=== PATIENT | female | born 1935 | race Caucasian/White ===

== ENCOUNTER → 2017-08-21 10:23 | Outpatient (CLI) | payer MEDICARE, OTHER, SELFPAY ==
--- NOTE | 2017-08-21 10:28 | DI.RAD.S_ITS ---
PROCEDURE: XR CERVICAL SPINE 2V OR 3V INDICATIONS: pain TECHNIQUE: 3 view(s) of the cervical spine were acquired. COMPARISON: [facility], , CERVICAL SPINE 4 OR 5 VIEWS, 12/28/2015, 11:53. FINDINGS: Bones: No fractures or dislocations to the T1 level. The lateral masses of C1 appear intact on the odontoid view. No suspicious bony lesions. There is grade 1 anterolisthesis of C3 on C4 and grade 2 anterolisthesis of C7 on T1. There is degenerative disc disease, severe at C4-C5, C5-C6 and C6-C7. Bilateral facet arthropathy scattered in cervical spine, severe C3-C4 on the right, and C3-C4 and C4-C5 on the left. Soft tissues: No prevertebral soft tissue swelling. IMPRESSION: 1. Severe degenerative disc and facet disease in cervical spine. 2. Spondylolisthesis at C3-C4 and C7-T1. Dictated by: Beatris Mcgovern M.D. on 08/21/2017 at 11:11 Approved by: Beatris Mcgovern M.D. on 08/21/2017 at 11:15
--- NOTE | 2017-08-21 10:28 | DI.RAD.S_ITS ---
PROCEDURE: XR LUMBAR SPINE MIN 4V INDICATIONS: pain TECHNIQUE: 5 views of the lumbar spine acquired. COMPARISON: None. FINDINGS: Bones: 5 nonrib-bearing vertebrae are present. There is grade 1-2 anterolisthesis of L4 on L5, and grade 1 retrolisthesis of L1 on L2. No vertebral body compression fractures. No suspicious bony lesions. There is degenerative disc disease, severe T11-T12, T12-L1, L1-L2 and L4-L5. Mild to moderate facet arthropathy at L4-L5 and L5-S1. No pars defect. There is osteopenia. Soft tissues: Overlying bowel gas pattern is normal. No suspicious soft tissue calcifications. Aortic calcification consistent with atherosclerosis. Flexion/extension: There is decreased range of motion. IMPRESSION: 1. Multilevel severe degenerative disc disease. 2. Mild to moderate lower lumbar spine facet arthropathy. 3. Spondylolisthesis. 4. Decreased range of motion. 5. Osteopenia. Dictated by: Beatris Mcgovern M.D. on 08/21/2017 at 11:21 Approved by: Beatris Mcgovern M.D. on 08/21/2017 at 11:26
[2017-08-21 10:52] LABS: Add Manual Diff / Slide Review NO; Basophils Percent Auto 1.2 % (0-2); Eosinophils Percent Auto 3.6 % (2-4); Hematocrit 41.7 % (36-46); Hemoglobin 13.8 g/dL (12.0-16.0); Lymphocytes Percent Auto 28.5 % (25-40); Mean Corpuscular HGB Conc 33.1 % (30-36); Mean Corpuscular Hemoglobin 30.8 PG (26-34); Mean Corpuscular Volume 92.9 fL (80-100); Monocytes Percent Auto 9.6 % (3-14); Neutrophils Absolute Auto 3800 /uL (3000-5900); Neutrophils Percent Auto 57.1 % (50-75); Platelet Count 235 X10^3/uL (150-400); Red Blood Cell Count 4.48 X10^6/uL (4.0-5.2); Red Cell Distribution Width 13.2 % (11.6-14.8); White Blood Cell Count 6.6 X10^3/uL (4.5-11.0)
[2017-08-21 11:16] LABS: Alanine Aminotransferase 38 IU/L (9-52); Albumin 4.5 g/dL (3.5-5.0); Albumin Globulin Ratio 1.3 (1.0-2.8); Alkaline Phosphatase 91 U/L (38-126); Aspartate Aminotransferase 37 IU/L (14-36); BUN Creatinine Ratio 26.7 (6-22); Bilirubin Total 0.8 mg/dL (0.2-1.3); Blood Urea Nitrogen 16 mg/dL (7-17); Calcium 9.7 mg/dL (8.4-10.2); Carbon Dioxide 29 mmol/L (22-32); Chloride 101 mmol/L (98-107); Cholesterol 157 mg/dL (140-199); Estimated Glomerular Filt Rate > 60.0 mL/min (>60); Globulin 3.4 g/dL (1.7-4.1); Glucose 112 mg/dL (80-110); HDL Cholesterol 50 mg/dL (40-60); HEMOLYSIS < 15 (0-50); LDL Cholesterol Calculated 86 mg/dL (<100); Potassium 4.4 mmol/L (3.4-5.1); Sodium 141 mmol/L (137-145); Total Protein 7.9 g/dL (6.3-8.2); Triglycerides 104 mg/dL (35-150)
[2017-08-21 11:58] LABS: Thyroid Stimulating Hormone 1.37 uIU/mL (0.47-4.68)
== END ==
PROVIDERS: Visit Provider Family Medicine
DX: M50.30 Other cervical disc degeneration, unspecified cervical region (principal); M47.812 Spondylosis without myelopathy or radiculopathy, cervical region; M43.12 Spondylolisthesis, cervical region; M43.13 Spondylolisthesis, cervicothoracic region
CPT/HCPCS: 36415; 72040; 72110; 80053; 80061; 84443; 85025

== ENCOUNTER → 2017-10-13 10:36 | Outpatient (CLI) | payer MEDICARE, OTHER, SELFPAY ==
--- NOTE | 2017-10-13 10:38 | DI.MRI.S_ITS ---
PROCEDURE: MR CERVICAL SPINE WO CON INDICATIONS: 82 year-old woman with neck pain and cervical radiculopathy. TECHNIQUE: Noncontrast sagittal T1 spin echo and T2 fast spin echo, sagittal STIR, foraminal oblique sagittal T2 fast spin echo, and axial gradient echo or T2 fast spin echo through the cervical spine. COMPARISON: [facility], , XR CERVICAL SPINE 2V OR 3V, 08/21/2017, 10:42. [facility], , CERVICAL SPINE 4 OR 5 VIEWS, 12/28/2015, 11:53. FINDINGS: Image quality: There are motion artifacts. Alignment and Curvature: There is grade 1 anterolisthesis of C2 on C3, C3 on C4 and C7 on T1. Bone Marrow: Degenerative endplate signal changes are present throughout the cervical spine. Spinal Cord: Visualized spinal cord has normal size and signal. No cerebellar tonsillar herniation. Paraspinous Soft Tissues: No paravertebral masses. Prevertebral soft tissues are normal in thickness. C2-C3: Preserved disc height. Mild disc desiccation. There is mild posterior disc bulge. Moderate bilateral facet arthropathy. The central canal is mildly narrowed. Moderate left and mild right foraminal stenosis. C3-C4: Mild loss of disc height and disc desiccation. There is diffuse posterior disc bulge. Mild bilateral facet arthropathy. The central canal is moderately narrowed. Severe right and moderate left foraminal stenosis. C4-C5: Ynakiuzp-en-pemqek loss of disc height and disc desiccation. There is diffuse posterior disc bulge. Mild bilateral facet arthropathy. The central canal is focyfxkb-oi-muqlbpmo narrowed. Severe bilateral foraminal stenosis. C5-C6: Severe loss of disc height and disc desiccation. There is diffuse posterior disc bulge. Mild bilateral facet arthropathy. The central canal is severely narrowed. Severe lateral foraminal stenosis. C6-C7: Severe loss of disc height and disc desiccation. There is diffuse posterior disc bulge. Mild bilateral facet arthropathy. The central canal is moderately narrowed. Moderate bilateral foraminal stenosis. C7-T1: Moderate to severe loss of disc height and disc desiccation. There is diffuse posterior disc bulge. Mild bilateral facet arthropathy. The central canal is moderately narrowed. Moderate bilateral foraminal stenosis. IMPRESSION: 1. Multilevel degenerative disc disease and facet arthropathy as described. 2. Multilevel central canal stenosis, severe at C5-C6, boxuaspk-[id number]-qmoyxz at C4-C5, and moderate at C3-C4, C6-C7 and C7-T1. 3. Multilevel foraminal stenoses as described. Dictated by: Beatris Mcgovern M.D. on 10/13/2017 at 12:09 Approved by: Beatris Mcgovern M.D. on 10/13/2017 at 13:39
== END ==
PROVIDERS: PCP Family Medicine; Visit Provider Family Medicine
DX: M50.11 Cervical disc disorder with radiculopathy, high cervical region (principal); M48.02 Spinal stenosis, cervical region; M47.22 Other spondylosis with radiculopathy, cervical region
CPT/HCPCS: 72141

== ENCOUNTER → 2017-10-20 14:25 | Outpatient (CLI) | payer MEDICARE, OTHER, SELFPAY ==
--- NOTE | 2017-10-20 | DI.MG.S_ITS ---
BILATERAL DIGITAL SCREENING MAMMOGRAM 3D/2D WITH CAD: 10/20/2017 CLINICAL: Routine screening. Personal history of left breast cancer. Comparison is made to exams dated: 07/25/2016 mammogram, 06/15/2015 mammogram, and 03/31/2014 mammogram - [facility]. There are scattered fibroglandular elements in both breasts. Current study was also evaluated with a Computer Aided Detection (CAD) system. There is an asymmetry in the right breast anterior depth lateral region seen on the craniocaudal view only. No other significant masses, calcifications, or other findings are seen in either breast. IMPRESSION: INCOMPLETE: NEEDS ADDITIONAL IMAGING EVALUATION The asymmetry in the right breast is indeterminate. Additional views with possible ultrasound are recommended. This exam was interpreted at Station ID: [id number]. NOTE: For mammograms, a report in lay terms will be sent to the patient. Approximately 15% of breast malignancies will not be visualized mammographically. In the management of a palpable breast mass, a negative mammogram must not discourage biopsy of a clinically suspicious lesion. Electronically Signed By: Francois [email or web address]:10/20/2017 15:20:41 letter sent: Additional Imaging Needed ACR BI-RADS Category 0: Incomplete [id number]
== END ==
PROVIDERS: PCP Family Medicine; Visit Provider Family Medicine
DX: Z12.31 Encounter for screening mammogram for malignant neoplasm of breast (principal); Z85.3 Personal history of malignant neoplasm of breast
CPT/HCPCS: 77063; 77067

== ENCOUNTER → 2017-11-07 09:49 | Outpatient (CLI) | payer MEDICARE, OTHER, SELFPAY ==
--- NOTE | 2017-11-07 09:51 | DI.MG.S_ITS ---
UNILATERAL RIGHT DIGITAL DIAGNOSTIC MAMMOGRAM 3D/2D WITH ADDITIONAL VIEWS POST LUMPECTOMY: 11/07/2017 CLINICAL: Additional evaluation requested from prior study. Personal history of breast cancer. Comparison is made to exams dated: 10/20/2017 mammogram - [facility], 07/25/2016 mammogram, and 06/15/2015 mammogram - [facility]. There are scattered fibroglandular elements in the right breast. The asymmetry in the right breast anterior depth lateral region seen on the craniocaudal view only is not seen in additional views. No other significant masses or calcifications are seen in the breast. IMPRESSION: BENIGN The asymmetry in the right breast likely respresents superimposed fibroglandular tissue and is benign. There is no mammographic evidence of malignancy. A 1 year screening mammogram is recommended. This exam was interpreted at Station ID: [id number]. NOTE: For mammograms, a report in lay terms will be sent to the patient. Approximately 15% of breast malignancies will not be visualized mammographically. In the management of a palpable breast mass, a negative mammogram must not discourage biopsy of a clinically suspicious lesion. Electronically Signed By: Nelly mendieta/:11/07/2017 10:29:32 letter sent: Normal Exam ACR BI-RADS Category 2: Benign Finding(s) 3342F
== END ==
PROVIDERS: Family Provider Family Medicine; PCP Family Medicine; Visit Provider Family Medicine
DX: R92.8 Other abnormal and inconclusive findings on diagnostic imaging of breast (principal); Z85.3 Personal history of malignant neoplasm of breast
CPT/HCPCS: 77065; G0279

== ENCOUNTER 2019-04-06 10:44 | Outpatient (CLI) | payer MEDICARE, OTHER, SELFPAY ==
[2019-04-06] VITALS (11 sets, daily range): BP systolic 112–174; BP diastolic 50–94; PULSE 62–74; RESP 16–17; TEMP 36.1; O2SAT 95–99
--- NOTE | 2019-04-06 10:54 | DI.RAD.S_ITS ---
PROCEDURE: PAIN C/T FACET INJ/BLK 1ST L INDICATIONS: SPONDYLOSIS FINDINGS: Fluoroscopic spot filming was performed to verify placement of spinal needles at the C4-C5, C5-C6, C6-C7 level(s), as labeled on the films. Appropriate location(s) of the needle tip(s) was confirmed by injection of iodinated contrast. Dictated by: Fernando Dalal M.D. on 04/07/2019 at 12:35 Approved by: Fernando Dalal M.D. on 04/07/2019 at 12:35
[2019-04-06] MEDS: MIDAZOLAM 5 MG/5 ML VIAL IV (11:41)
[2019-04-06] MEDS: fentaNYL 100 MCG/2 ML INJ 50 MCG IV (11:43)
[2019-04-06] MEDS: BUPIVACAINE 0.5% (PF) VIAL 2 ML INJ (11:57)
[2019-04-06] MEDS: IOPAMIDOL 15 ML VIAL 3 ML INJ (11:57)
[2019-04-06] MEDS: DEXAMETHASONE 10 MG/ML VIAL 20 MG INJ (11:57)
--- NOTE | 2019-04-06 11:59 | PC.NURSE ---
ASSISTING PT OFF TABLE AND TRANSPORTING TO POST PROC AREA IN STABLE CONDITION. PASSING RN CARE OF PT OFF TO PARRISH Costello RN.
--- NOTE | 2019-04-06 12:01 | P.PCN_ITS ---
Procedures Date/Time Date of procedure: 04/06/19 Time of procedure: 12:02 General Procedure description: PREOP DIAGNOSIS 1. FACET ARTHROPATHY 2. AXIAL NECK PAIN POST OP DIAGNOSIS 1. FACET ARTHROPATHY 2. AXIAL NECK PAIN PROCEDURES 1. FLUOROSCOPICALLY GUIDED, CONTRAST-CONTROLLED LEFT C4/5, C5/6 AND C6/7 FACET JOINT INJECTIONS WITH CONSCIOUS SEDATION. PHYSICIAN: Marino Blake DO INDICATIONS Corrine is referred by PAC Good for treatment of Axial Neck Pain DESCRIPTION OF PROCEDURE Fluoroscopically guided, contrast-controlled left C4/5, C5/6 and C6/7 facet joint injections with conscious sedation. Following review of allergy and review of potential side effects and complications, including, but not necessarily limited to, infection, allergic reaction, local tissue breakdown, stroke, temporary or permanent nerve injury a nd paralysis, the patient indicated that the patient understood and agreed to proceed. An informed consent document was signed by the patient, witnessed by a nurse, and placed in the patient's chart. Additionally, other treatment options including medications, modalities, and physical therapy were reviewed with the patient. After review of previous anaesthesic history and IV conscious sedation the patient was deemed safe to proceed with todays procedure with IV conscious sedation as ASA class II designation. Safety time-out was performed to confirm patient ID, procedure to be performed and site of procedure. IV sedation was accomplished with a combination of 2mg of Versed and 50mcg of Fentanyl was administered by the RN after DO order, titrated to patient comfort during the course of the procedure while the patient remained responsive to all verbal commands In the prone position, following sterile prep and drape of the cervical spine region, the posterior aspect of the left C4/5, C5/6 and C6/7 facet joints were identified fluoroscopically. The skin was anesthetized via a 25-gauge 1.5-inch needle with 1% lidocaine solution into the corresponding facet joints. At this point, a 25-gauge 2.5-inch spinal needle was atraumatically introduced and advanced under fluoroscopic guidance into the corresponding facet joints. Following negative aspiration, injections of approximately 0.2-cc of Isovue 200 confirmed interarticular placement without vascular uptake. At this point, a total of 1cc including 0.5cc or 5mg of dexamethasone combined with 0.5cc of 0.5% marcaine solution was injected without complication into each of the corresponding facet joints. The procedure tolerated the procedure well without signs or symptoms of complications prior to transfer to the recovery area continued monitoring without incident. The patient was then transferred to the recovery area where they were observed for an appropriate period of time after the injection. The patient reported a VAS score of 7 prior to the procedure and a post- procedure VAS of 2. Total Fluoroscopy Time: 32 seconds Total Conscious Sedation Time: 24 min POST OP INSTRUCTIONS They were provided a Pain Log to continue to record their response to the target-specific procedure prior to their follow-up visit with their referring physician. Additionally, specific post-injection care instructions and a contact number to our office were provided if concerns arise regarding possible complications associated with the procedure are suspected. Marino Blake, Complications: none
--- NOTE | 2019-04-06 12:13 | PC.NURSE ---
1210: Received patient post procedure, drowsy but arouses easily. Following conversation. VSS upon arrival, Daughter at side providing supportive care. WIll cont. to monitor closely.
== END 2019-04-06 12:39 ==
PROVIDERS: Family Provider Family Medicine; PCP Physician Assistant Medical; Referring Provider Physical Medicine & Rehabilitation; Visit Provider Physical Medicine & Rehabilitation
DX: M47.812 Spondylosis without myelopathy or radiculopathy, cervical region (principal); M54.2 Cervicalgia
CPT/HCPCS: 64490; 64491; 64492; 99152; J1100; J2250; J3010

== ENCOUNTER → 2019-10-27 13:12 | Outpatient (CLI) | payer MEDICARE, OTHER, SELFPAY ==
--- NOTE | 2019-10-27 13:17 | DI.RAD.S_ITS ---
PROCEDURE: XR CERVICAL SPINE 4V OR 5V INDICATIONS: cervical radiculopathy TECHNIQUE: 5 views of the cervical spine acquired. COMPARISON: [facility], CR, XR CERVICAL SPINE 2V OR 3V, 08/21/2017, 10:42. FINDINGS: Bones: No fractures or dislocations to the T1 level. Oblique images demonstrate no bony foraminal stenoses. There is moderately severe to severe degenerative disc disease from C4 through C7, best seen on the lateral view. Facet osteoarthritis is moderately severe from C4 inferiorly, and these factors combine to result in significant spinal and foraminal stenosis over the middle and lower thirds of the cervical spine. There is grade 1 anterolisthesis of C7 on T1. Soft tissues: No prevertebral soft tissue swelling. IMPRESSION: No trauma found. Moderately severe degenerative disc disease and facet osteoarthritis over the middle and lower thirds of the cervical spine with likelihood of significant spinal and foraminal stenosis through these regions. No trauma found, no significant subluxation is seen until C7-T1 is reached where anterolisthesis grade 1 is again noted as was previously the case a during plain film imaging in July of 2017. Dictated by: Seth Horne M.D. on 10/27/2019 at 14:51 Approved by: Seth Horne M.D. on 10/27/2019 at 14:53
== END ==
PROVIDERS: Family Provider Family Medicine; Referring Provider Physical Medicine & Rehabilitation; Visit Provider Physical Medicine & Rehabilitation
DX: M50.121 Cervical disc disorder at C4-C5 level with radiculopathy (principal); M47.22 Other spondylosis with radiculopathy, cervical region; M43.13 Spondylolisthesis, cervicothoracic region; R51 Headache; M54.81 Occipital neuralgia; M79.18 Myalgia, other site
CPT/HCPCS: 64405; 64450; 72050; J1100